=== PATIENT | male | born 1970 | race Caucasian/White ===

== ENCOUNTER 2016-08-22 08:08 | Inpatient (IN) | payer MEDICARE, MEDICAID ==
[2016-08-22] VITALS (10 sets, daily range): BP systolic 109–138; BP diastolic 56–75
[~2016-08-22] VITALS: Ht 177.8 cm; Wt 84.8 kg
[~2016-08-22 08:08] MED LIST: Bacitracin 50000 Units Vial ONE; Bupivacaine w/Epi 0.5% 30ml Vial INJ ONE; CYMBALTA60 MG ORAL; FLUTICASONE PRO16 G1 NASAL; Gelfoam Absorbable 1gm powder pkt TOPIC ONE; Isovue-M 300 15ml INJ ONE; LISINOPRIL30 MG ORAL; LUNESTA3 MG ORAL; MS CONTIN200 MG PO; NEXIUM40 M2 ORAL; NORVASC10 MG ORAL; OXYCODONE HCL15 M1 ORAL; SOMA350 MG PO; SPIRONOLACTONE1 EACH ORAL; SYMBICORT 16010.2 G1 IH; TRAZODONE HCL150 MG ORAL; Thrombin 5000 units TOPIC ONE; Thrombin 5000 units spray kit TOPIC ONE
[2016-08-22] MEDS ORDERED: PLAQUENIL200 MG ORAL (08:13)
--- NOTE | 2016-08-22 10:20 | Pre-Procedure Note/Attestation ---
Pre-Procedure Note/Attestation Complete Prior to Procedure Procedure Narrative: l34 Xlif, PSF with decomp Indications for Procedure Pre-Operative Diagnosis: SP L45S1 fusion L34 discopathy Attestation I attest that I discussed the nature of the procedure; its benefits; risks and complications; and alternatives (and the risks and benefits of such alternatives ), prior to the procedure, with the patient (or the patient's legal product support sales representative). I attest that, if there was a reasonable possibility of needing a blood transfusion, the patient (or the patient's legal product support sales representative) was given the [facility] standardized written summary, pursuant to the Tarun Mojgan Blood Safety Act ([place] Health and Safety Code # 1645, as amended). I attest that I re-evaluated the patient just prior to the surgery and that there has been no change in the patient's H&P, except as documented below: DELLA HATFIELD August 22, 2016 10:20
[2016-08-22] MEDS ORDERED: LR 1000ml 1,000 ML IVLG SCH (11:21)
[2016-08-22] MEDS ORDERED: LR 1000ml 1,000 ML IV SCH (11:30)
--- NOTE | 2016-08-22 11:34 | Anethesia Preoperative Eval ---
Anesthesia Pre-op PMH/ROS General Date of Evaluation: August 22, 2016 Time of Evaluation: 09:15 Anesthesiologist: Kat ASA Score: ASA 3 Mallampati Score Class I : Soft palate, uvula, fauces, pillars visible Class II: Soft palate, uvula, fauces visible Class III: Soft palate, base of uvula visible Class IV: Only hard plate visible Mallampati Classification: Class I Surgeon: Ellie Diagnosis: Radiculopathy Surgical Procedure: Extension of PLIF, lateral interbody fusion Family History: no anesthesia problems Allergies: Coded Allergies: PENICILLIN G (Verified Allergy, Mild, 04/13/09) Medications: see eMAR Past Medical History Cardiovascular: Reports: HTN, Denies: CAD, [place], arrhythmia, other, valve dz Pulmonary: Denies: COPD, JEAN, asthma, other Gastrointestinal/Genitourinary: Reports: GERD, Denies: CRI, ESRD, other Neurologic/Psychiatric: Denies: CVA, TIA, dementia, depression/anxiety, other Endocrine: Reports: other - SLE, Denies: DM, hypothyroidism, steroids HEENT: Denies: [place] (L), [place] (R), cataract (L), cataract (R), glaucoma, other Hematology/Immune: Denies: DVT, anemia, bleeding disorder, other Musculoskeletal/Integumentary: Reports: OA PMH Narrative: SLE, HTN, GERD,OA, chronic pain PSxH Narrative: ALIF and PLIF with ALIF complication of infection, right knee ACL, left TKR, multiple abdominal surgeries secondary to ALIF infections. Anesthesia Pre-op Phys. Exam Physician Exam Last Vital Signs Date Time Temp Pulse Resp B/P Pulse Ox O2 Delivery O2 Flow Rate FiO2 08/22/16 08:43 98.7 70 18 122/61 96 Room Air Constitutional: NAD Neurologic: CN 2-12 intact Cardiovascular: RRR, no M/R/G Respiratory: CTA Gastrointestinal: S/NT/ND Airway Exam Mallampati Score: Class I MO: full ROM: full Teeth: intact Anesthesia Pre-op A/P Labs WNL Studies Pre-op Studies: EKG - NSR Risk Assessment & Plan Assessment: Chronic pain, failed laminectomy syndrome, SLE now for lateral fusion and extension of PLIF Plan: GETA, Sed-Line, Propofol infusion Status Change Before Surgery: No Pre-Antibiotics Drug: Ancef Given Within 1 Hr of Incision: Yes Time Given: 10:00 MARIELY GRULLON M.D. August 22, 2016 11:34
--- NOTE | 2016-08-22 11:36 | Immediate Post-Op Evaluation ---
Immediate Post-Op Evalulation Immediate Post-Op Evalulation Procedure: Extensin of PLIF, lateral interbody fusion Date of Evaluation: August 22, 2016 Time of Evaluation: 15:28 IV Fluids: 2000 Estimated Blood Loss: 125 Urinary Output: 800 Blood Pressure Systolic: 116 Blood Pressure Diastolic: 74 Pulse Rate: 74 Respiratory Rate: 15 O2 Sat by Pulse Oximetry: 100 Temperature (Fahrenheit): 97.4 Pain Score (1-10): 3 Nausea: No Complications No complication Patient Status: awake, patent, extubated, none Hydration Status: adequate Drug: Ancef Given Within 1 Hr of Incision: Yes Time Given: 10:00 MARIELY GRULLON M.D. August 22, 2016 11:36
[2016-08-22] MEDS ORDERED: Bacitracin 50000 Units Vial ONE (12:35)
[2016-08-22] MEDS ORDERED: Bupivacaine w/Epi 0.5% 30ml Vial INJ ONE (12:39)
[2016-08-22] MEDS ORDERED: Vancomycin 1gm inj IVPB ONE (12:39)
[2016-08-22] MEDS ORDERED: Thrombin 5000 units TOPIC ONE (12:39)
[2016-08-22] MEDS ORDERED: Gelfoam Absorbable 1gm powder pkt TOPIC ONE (12:40)
[2016-08-22] MEDS ORDERED: Thrombin 5000 units spray kit TOPIC ONE (12:40)
--- NOTE | 2016-08-22 14:53 | Brief Operative Note ---
Immediate Post Operative Note Operative Note Pre-op Diagnosis: SP L45S1 fusion L34 discopathy Procedure: Xlif, PSF B redo lami L34 Post-op Diagnosis: same as pre-op Findings: consistent w/pre-op dx studies Surgeon: irene Watch Technician: georgia Anesthesiologist: claudy Anesthesia: general Specimen: none Complications: none Condition: stable Estimated Blood Loss: minimal Drains: none Implant(s) used?: Yes - dial lamina /stabilink, spinal elements xlif DELLA HATFIELD August 22, 2016 14:53
[2016-08-22] MEDS ORDERED: HYDROmorphone 1mg/ml Carpuject IVP PRN ×2 (15:00→20:15)
[2016-08-22] MEDS ORDERED: Norco 7.5mg/325mg tab ORAL PRN ×2 (15:00)
[2016-08-22] MEDS ORDERED: Metoclopramide 10mg/2ml Inj IVP PRN (15:00)
[2016-08-22] MEDS ORDERED: Milk of Magnesia 30ml Ud ORAL PRN (15:00)
[2016-08-22] MEDS ORDERED: Norco 5mg/325mg tab ORAL PRN (15:00)
[2016-08-22] MEDS ORDERED: traMADol 50mg tab ORAL PRN (15:00)
[2016-08-22] MEDS ORDERED: HYDROmorphone 1mg/ml Carpuject SUBQ PRN (15:00)
[2016-08-22] MEDS: Meperidine 25mg/0.5ml Inj IV PRN ×2 (15:24→15:56)
[2016-08-22] MEDS: Hydromorphone 0.5mg/0.5ml inj IVP PRN ×3 (15:27→16:07)
[2016-08-22] MEDS: LORazepam Inj 2mg/ml 1ml IV PRN ×2 (15:31→16:01)
--- NOTE | 2016-08-22 16:34 | Diagnostic Imaging Report ---
Indication: PAIN, intraoperative Technique: Digital intraoperative images Comparison: None Findings: Intraoperative images document localizer tool at what is presumably L3-4. Subsequent images demonstrate placement of a disc spacer at L3-4 and interspinous fusion hardware. Pre-existing hardware is also noted Impression: Intraoperative imaging, as described
[2016-08-22] MEDS: D5 1/2NS 1,000 ML IV SCH (18:00)
[2016-08-22] MEDS: Docusate 100mg cap ORAL SCH (18:00)
[2016-08-22] MEDS: ceFAZolin sod 2 GM in D5W 110 ML IV SCH (18:56)
[2016-08-22] MEDS ORDERED: Zolpidem 5mg tab ORAL PRN (19:00)
[2016-08-22] MEDS ORDERED: PCA HYDROmorphone 30mg/30ml Syr IV PRN ×2 (20:15→21:45)
[2016-08-22] MEDS ORDERED: Rate Change PCA 1 Each MISC PRN ×3 (20:15→21:45)
--- NOTE | 2016-08-22 20:15 | Operative Note - Dictated ---
DATE OF OPERATION: 08/22/2016 SURGEON: Robinson Argueta MD., M.D. DOMESTIC MAID: Radu Lazaro PA-C. ANESTHESIOLOGIST: Tarun Stephens M.D. ANESTHESIA TYPE: General endotracheal anesthesia. PREOPERATIVE DIAGNOSES: 1. Status post spinal fusion at L4-L5 and L5-S1 with adjacent level arthrosis and stenosis. 2. Status post X-lift procedure earlier. POSTOPERATIVE DIAGNOSES: 1. Status post spinal fusion at L4-L5 and L5-S1 with adjacent level arthrosis and stenosis. 2. Status post X-lift procedure earlier. OPERATION PERFORMED: 1. Posterior spinal fusion, L3-L4. 2. Redo laminectomy L3 and L4 bilaterally. 3. Nonsegmental instrumentation, L3-L4. 4. Use of operative microscope. 5. Use of fluoroscopy. ESTIMATED BLOOD LOSS: Minimal. COMPLICATIONS: None. FINDINGS: Stable fixation. INDICATIONS: The patient is a pleasant gentleman with status post prior L4 through S1 spinal fusion with advanced discopathy at L3-L4 with spinal stenosis. As he had failed conservative care, surgical recommendations were made and he elected to proceed. RISK NOTE: The patient was explained in detail the risks and benefits of surgery to include, but not be limited to those of bleeding, infection, damage to nerves, vessels, tendons, anesthetic risk, allergic reaction, aspiration, and possibly . The patient understood and wished to proceed. OPERATIVE PROCEDURE IN DETAIL: Under benefits of general anesthesia, the patient was turned prone onto a radiolucent Pradeep frame. All bony prominences were well padded. The back was prepped and draped in usual sterile fashion. Prior incision was identified and was infiltrated with Marcaine with epinephrine. The incision was sharply carried down through the subcutaneous. Subperiosteal dissection was carried out at L3. Dissection through scared anatomy was performed through the superior portion of L4. The extensive amount of scarring was encountered. Operative microscope was brought in place and using a high-speed drill, laminotomy of the inferior portion of L3 and superior portion of L4 as well as a medial facetectomy on the left side was performed. Once the lamina was thinned out, curved curette was used to mobilize the ligamentum flavum and Kerrison 2, 3 and 4 punches were used to remove the lamina on the left side and along the neural foramen. This procedure was repeated in an identical fashion along the right side as well. Once satisfied with the decompression, copious irrigation was performed. Meticulous hemostasis was achieved. A strip of bone graft was then laid onto the laminotomy site bilaterally (bacterin bone as well as local autograft bone). Once satisfied with this, the 10 millimeter dual lamina implants/interspinous fixation device was deployed between the spinous processes of L3 and L4. Under fluoroscopic visualization it was placed in the appropriate position and crimped down to appropriate tightness. The locking screws were then deployed. Copious irrigation was performed. Additional bone graft was placed within the interspinous region. Decision was made to close. Fascia was repaired using #1 Vicryl. Subcutaneous closure using 2-0 Vicryl. Dermabond and sterile dressing was applied. At the time of this dictation, the patient was awaiting extubation. [facility] Argueta DR: KRYSTA JOB#: [id number] CC:
[2016-08-22] MEDS ORDERED: TraZODone 100mg tab ORAL SCH (21:00)
[2016-08-22] MEDS: HYDROmorphone 1mg/ml Carpuject IVP PRN (22:03)
[2016-08-22] MEDS ORDERED: MS Contin 100mg tab ORAL SCH (22:45)
[2016-08-22] MEDS: oxyCODONE 15mg IR tab ORAL PRN (23:20)
[2016-08-22] MEDS: Dronabinol 2.5mg Cap ORAL SCH (23:45)
[2016-08-23 00:02] VITALS: BP 142/72
--- NOTE | 2016-08-23 00:30 | Operative Note - Dictated ---
DATE OF OPERATION: 08/22/2016 SURGEON: Robinson Argueta M.D. UNDERWATER ROBOTICIST: Radu Lazaro PA-C. ANESTHESIOLOGIST: Tarun Stephens M.D. ANESTHESIA: General endotracheal anesthesia. PREOPERATIVE DIAGNOSIS: Status post L4 through S1 fusion with adjacent level discopathy L3-L4 with stenosis. POSTOPERATIVE DIAGNOSIS: Status post L4 through S1 fusion with adjacent level discopathy L3-L4 with stenosis. PROCEDURE: 1. An extreme lateral interbody fusion (with placement of spinal elements cage as well as use of allograft bone). 2. Use of fluoroscopy. 3. Neurodiagnostic monitoring. ESTIMATED BLOOD LOSS: Minimal. COMPLICATIONS: None. FINDINGS: Stable fixation. INDICATIONS: The patient is a 46-year-old gentleman who previously had undergone L4 through S1 fusion and had developed progressive worsening back pain. He failed conservative pain management. He had evidence of spinal stenosis at L3-L4 with findings consistent with discopathy. Pros, cons, risks, and benefits were discussed of extending the fusion. The patient elected to proceed. RISK NOTE: The patient was explained in detail the risks and benefits of surgery to include, but not be limited to, those of bleeding, infection, damage to nerves, muscles, tendons, anesthetic risk, allergic reaction, aspiration, and possibly . The patient understood and wished to proceed. OPERATIVE PROCEDURE IN DETAIL: The patient was taken to the operative suite. After general endotracheal anesthesia was obtained, Salvador catheter was placed. He was turned right side down lateral decubitus on to a radiolucent table. He was firmly strapped with chest holders , care being taken to avoid point pressure. All bony prominences were well padded. The fluoroscope was brought in place and adequate visualization of the L3-L4 level was obtained in both AP and lateral projections. On the lateral projection, the incision site was marked out at L3-L4. The flank was prepped and draped in usual sterile fashion. Skin was infiltrated with Marcaine with epinephrine. The incision was sharply carried down through the subcutaneous down to the lateral fascia. The fascia was incised. The muscle fibers were bluntly spread down from the 3 layers of the lateral abdominal musculature. The area just along the retroperitoneal space was bluntly dissected and the retroperitoneal cavity was dissected free using blunt palpation along the area of the lateral aspect of the disk. Once the blunt manual dissection was achieved a probe was placed onto what was felt to be the L3-L4 disk laterally and AP and lateral projections confirmed this. At this juncture, a blunt wire was passed through the probe and into the disk space. After neurodiagnostic testing confirmed the L3 nerve could not be in the immediate vicinity. Dilation was achieved and EMG testing confirmed that the nerve root was not in the surgical field. The retractors were deployed over the dilators and spread. It was noted that the nerve could be visualized and this was re-retracted dorsally. At this point, the retractors were at the level of the lateral disk space. At this point, the disk was incised and with use of 8 then a 10 mm box curette, the disk was removed from the L3-L4 disk space. Straight pituitary was used to similarly remove the disk material. Endplate strippers were used to remove cartilaginous endplates. At this point, a small cub was used to penetrate the lateral anulus on the contralateral side. This allowed for distraction of the far aspect of the disk space. At this point, an appropriate size 18 mm lordotic implant was chosen and had excellent fit. Please note that the implant was packed with signal fuse bone graft photocomposing machine operator. At this point, copious irrigation was performed. Meticulous hemostasis was performed. Final AP and lateral projections demonstrated implant in excellent position. At this point, the lateral fascia was repaired using #1 Vicryl, subcutaneous closure using 2-0 Vicryl, Dermabond and a sterile dressing. At the end of this procedure, the patient tolerated the procedure well and was turned onto his back awaiting the stage posterior approach. Robinson Argueta M.D. DR: APPLE JOB#: [id number] CC: CURT
[2016-08-23] MEDS ORDERED: MS Contin 30mg tab ORAL ONE (01:00)
[2016-08-23] MEDS: ceFAZolin sod 2 GM in D5W 110 ML IV SCH ×2 (02:10→09:49)
[2016-08-23 04:00] VITALS: BP 142/69
--- NOTE | 2016-08-23 04:30 | Consultation ---
DATE OF CONSULTATION: 08/22/2016 CONSULTING PHYSICIAN: Juan Pablo Nicolas M.D. REFERRING PHYSICIAN: Robinson Argueta M.D. REASON FOR CONSULT: Acute pain consult. HISTORY OF PRESENT ILLNESS: Dr. Robinson Argueta, Thank you kindly for consulting me to evaluate and render an opinion as to how to proceed in the management of the patient's acute postoperative lumbar spine pain after extensive multiple level lumbar spine fusion surgery with instrumentation. The patient is a 46-year-old gentleman, who is narcotic dependent. He sees an outpatient pain management doctor, who is his primary treating physician. The patient uses high dose of long-acting morphine along with high dose short-acting oxycodone while she was nicotine and marijuana dependent. I saw the patient at bedside with the nurse. I performed a detailed history and physical examination. I discussed the case with yourself, Dr. Argueta along with the pharmacist, Anali, Juan Pablo. PAST MEDICAL HISTORY: 1. Acute postoperative lumbar spine, status post lumbar spine fusion surgery with instrumentation by Dr. Robinson Argueta in July 2016. 2. Chronic lumbar spine pain. 3. Opioid dependence. 4. Marijuana dependence. 5. Nicotine dependence. 6. Lupus. 7. High blood pressure. PAST SURGICAL HISTORY: Previous lumbar spine surgery, left knee replacement, right knee surgery, and six abdominal surgeries. MEDICATIONS: At home, extended release morphine 200 mg in the morning and at night, 100 mg in the afternoon, oxycodone instant release 60 mg three to four times per day, Soma, Plaquenil, spironolactone, lisinopril, hydrochlorothiazide, and Norvasc. SOCIAL HISTORY: The patient lives at home with his . He smokes 1/2 packs of tobacco daily. He admits to smoking marijuana every night. FAMILY HISTORY: Diabetes, kidney stones, and coronary artery disease. REVIEW OF SYSTEMS: Per attending physician. PHYSICAL EXAMINATION: VITAL SIGNS: Age 46. Height 5 feet 9. Weight 190 pounds. Body mass index 27. Vital signs, afebrile, pulse 70, respirations 18, blood pressure 135/70, and oxygen saturation 99% on supplemental oxygen. HEENT: Normocephalic and atraumatic. CHEST: Clear to auscultation. HEART: Regular rate and rhythm. ABDOMEN: Positive bowel sounds. BACK: Lumbar spine with significant pain with any movement. EXTREMITIES: Able to move all extremities x4 with 5/5 dorsiflexion, 5/5 plantar flexion, bilateral lower extremities. : Salvador catheter in place. NEUROLOGIC: Detailed neurologic exam per Dr. Argueta. LABORATORY AND DIAGNOSTIC DATA: Shows heart rate 62 on 12-lead EKG showing normal sinus rhythm. MRI of the lumbar spine report in the medical record. Laboratory studies, 08/18/2016, shows sodium 143, potassium 4.2, bicarbonate 29, chloride 87, BUN 12, creatinine 0.7, glucose 104, and calcium 10.0. . Albumin 4.4. Total bilirubin 0.4, alkaline phosphatase 76, ALT 19, and AST 23. White count 7, hematocrit 34, and platelets 275,000. INR 0.8 and PTT . IMPRESSION: 1. Acute postoperative lumbar spine, status post lumbar spine fusion surgery with instrumentation by Dr. Robinson Argueta in July 2016. 2. Chronic lumbar spine pain. 3. Opioid dependence. 4. Marijuana dependence. 5. Nicotine dependence. 6. Lupus. 7. High blood pressure. TREATMENT RECOMMENDATIONS: I spoke with the pharmacist to start the patient on a high-dose TIMBER HEWER unit 0.4 mg demand dose at 12-minute lockout and a 2 mg ____. Additionally, I have ordered a breakthrough dose of intravenous Dilaudid 1 mg q.3 hours p.r.n. for severe breakthrough pain. I placed the patient on oxycodone instant release 60 mg orally every three hours as needed for moderate pain. I have placed the patient on Marinol for his nightly marijuana usage. I recommended a nicotine patch for nicotine withdrawal agitation, which will exacerbate his pain complaint. I believe that the short-term use of the nicotine patch during the hospital will outweigh any long-term deleterious affects bony fusion. The patient most certainly will be resuming heavy tobacco usage once he is discharged from the hospital. The patient states that he has been using a long-acting MS Contin 200 mg twice a day with 100 milligram dose in the afternoon. The patient states that he has been on this dose for at least one year. I therefore had increased his MS Contin slightly to 200 mg every eight hours around the clock, to be held for sedation. I hope this regimen will help improve this patient's pain complaints. Juan Pablo Nicolas M.D. DR: LARRY JOB#: [id number] CC:
[2016-08-23] MEDS: D5 1/2NS 1,000 ML IV SCH ×3 (04:56→23:45)
[2016-08-23 06:52] LABS: MEAN CORPUSCULAR HEMOGLOBIN 28.8 PG (27.0-31.0); MEAN CORPUSCULAR HGB CONC 35.5 G/DL (32.0-36.0); MEAN CORPUSCULAR VOLUME 81 FL (80-99); MEAN PLATELET VOLUME 5.8 FL (6.5-10.1); PLATELET COUNT 227 K/UL (150-450); RED BLOOD COUNT 4.23 M/UL (4.70-6.10); RED CELL DISTRIBUTION WIDTH 11.7 % (11.6-14.8)
[2016-08-23] MEDS: PCA shift volume MISC SCH ×2 (07:00→19:37)
[2016-08-23] MEDS ORDERED: PCA shift volume MISC SCH (07:00)
[2016-08-23] MEDS ORDERED: MS Contin 100mg tab ORAL SCH (07:00)
[2016-08-23] MEDS: oxyCODONE 15mg IR tab ORAL PRN ×3 (07:54→19:02)
[2016-08-23 08:05] VITALS: BP 134/71
[2016-08-23] MEDS: DULoxetine 30mg cap ORAL SCH (08:52)
[2016-08-23] MEDS: Docusate 100mg cap ORAL SCH ×2 (08:52→17:28)
[2016-08-23] MEDS: Spironolactone 25mg tab ORAL SCH (08:53)
[2016-08-23] MEDS: Lisinopril 20mg tab ORAL SCH (08:53)
[2016-08-23] MEDS: MS Contin 100mg tab ORAL SCH ×3 (08:55→21:50)
[2016-08-23] MEDS: HYDROmorphone 1mg/ml Carpuject IVP PRN ×3 (09:02→17:28)
[2016-08-23 09:11] LABS: BAND NEUTROPHILS % (MANUAL) 1 % (0-8); BASOPHILS % (MANUAL) 0 % (0-2); EOSINOPHILS % (MANUAL) 0 % (0-3); LYMPHOCYTES % (MANUAL) 8 % (20-45); NEUTROPHILS % (MANUAL) 88 % (45-75); PLATELET ESTIMATE ADEQUATE; PLATELET MORPHOLOGY NORMAL; TOTAL CELLS COUNTED 100
--- NOTE | 2016-08-23 09:17 | General Progress Note ---
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 CMP Subjective Allergies: Coded Allergies: PENICILLIN G (Verified Allergy, Mild, 04/13/09) Subjective He is s/p lumbar surgery, no c/p or sob, still alot of pain at the site of surgery Objective Last 24 Hour Vital Signs Date Time Temp Pulse Resp B/P Pulse Ox O2 Delivery O2 Flow Rate FiO2 08/23/16 08:53 134/71 08/23/16 08:53 95 134/71 08/23/16 08:05 97.9 95 20 134/71 95 Room Air 08/23/16 08:00 18 08/23/16 04:00 18 08/23/16 04:00 100.8 80 19 142/69 94 Nasal Cannula 08/23/16 00:13 18 08/23/16 00:02 97.3 70 19 142/72 97 Nasal Cannula 08/22/16 20:10 97.3 70 18 135/70 99 Nasal Cannula 08/22/16 19:45 73 17 96 Room Air 08/22/16 19:45 73 19 96 Room Air 08/22/16 19:45 73 18 Room Air 08/22/16 16:30 96.6 70 18 135/65 99 Nasal Cannula 3.0 08/22/16 16:30 98.0 08/22/16 16:25 98.0 70 22 138/70 100 Nasal Cannula 3.0 08/22/16 16:25 98.0 08/22/16 16:10 77 33 130/68 100 Nasal Cannula 3.0 08/22/16 15:55 69 18 135/75 100 Nasal Cannula 3.0 08/22/16 15:40 74 18 129/70 100 Simple Mask 6.0 08/22/16 15:25 81 17 109/61 100 Simple Mask 6.0 08/22/16 15:22 74 15 100 08/22/16 15:20 73 17 121/71 100 Simple Mask 6.0 08/22/16 15:15 97.4 82 18 116/56 100 Simple Mask 6.0 Intake and Output 08/22/16 08/23/16 19:00 07:00 Intake Total 2300 ml 1160 ml Output Total 1075 ml 1600 ml Balance 1225 ml -440 ml Intake Oral 100 ml 150 ml IV Total 2200 ml 1010 ml Output Urine Total 950 ml 1600 ml Estimated Blood Loss 125 ml # Voids 1 Laboratory Tests 08/23/16 06:25: White Blood Count 11.0H, Red Blood Count 4.23L, Hemoglobin 12.2L, Hematocrit 34.3L, Mean Corpuscular Volume 81, Mean Corpuscular Hemoglobin 28.8, Mean Corpuscular Hemoglobin Concent 35.5, Red Cell Distribution Width 11.7, Platelet Count 227, Mean Platelet Volume 5.8L, Neutrophils (%) (Auto) , Lymphocytes (%) ( Auto) , Monocytes (%) (Auto) , Eosinophils (%) (Auto) , Basophils (%) (Auto) , Neutrophils % (Manual) [Pending], Lymphocytes % (Manual) [Pending], Platelet Estimate [Pending], Platelet Morphology [Pending] Height (Feet): 5 Height (Inches): 10.00 Weight (Pounds): 187 General Appearance: WD/WN, no apparent distress, alert EENT: PERRL/EOMI Neck: non-tender, normal alignment Cardiovascular: normal peripheral pulses, normal rate, regular rhythm Respiratory/Chest: chest wall non-tender, lungs clear Abdomen: normal bowel sounds, non tender, soft Extremities: normal range of motion Neurologic: flatwork presser II-XII grossly normal JENNIFER ARITA August 23, 2016 09:17
[2016-08-23] MEDS ORDERED: Propofol 10mg/ml 100ml btl IV ONE (09:30)
[2016-08-23] MEDS ORDERED: Succinylcholine 20mg/ml 10ml vial ONE (09:30)
[2016-08-23] MEDS ORDERED: Propofol 10mg/ml 20ml IV ONE (09:30)
[2016-08-23] MEDS ORDERED: NS Irrig 1000ml ONE (09:30)
[2016-08-23] MEDS ORDERED: fentaNYL 250mcg/5ml ONE (09:30)
[2016-08-23] MEDS ORDERED: Midazolam 2mg/2ml Inj ONE (09:30)
[2016-08-23] MEDS ORDERED: LR 1000ml ONE (09:30)
[2016-08-23] MEDS ORDERED: Sterile Water Irrig 1000ml IRRIG ONE (09:30)
[2016-08-23] MEDS ORDERED: ePHEDrine 50mg/ml Inj ONE (09:30)
[2016-08-23] MEDS ORDERED: Neostigmine 1mg/ml 10ml Inj ONE (09:30)
[2016-08-23] MEDS ORDERED: Nimbex 2mg/ml Inj 10ML IVP ONE (09:30)
[2016-08-23] MEDS ORDERED: Glycopyrrolate 0.2mg/ml 1ml Vial ONE (09:30)
[2016-08-23] MEDS: Flonase Nasal Inhaler 16gm NASAL SCH (09:35)
[2016-08-23 09:37] LABS: ALANINE AMINOTRANSFERASE 13 U/L (3-41); ALBUMIN/GLOBULIN RATIO 1.9 (1.0-2.7); ANION GAP 12 (5-15); ASPARTATE AMINO TRANSFERASE 21 U/L (5-40); CALCIUM 9.9 mg/dL (8.6-10.2); CARBON DIOXIDE 28 mEQ/L (20-30); CHLORIDE 93 mEQ/L (98-107); CREATININE 0.7 mg/dL (0.7-1.2); GLOMERULAR FILTRATION RATE > 60 mL/min (>60); HEMOLYSIS 1; POTASSIUM 4.1 mEQ/L (3.4-4.9); SODIUM 133 mEQ/L (135-145); TOTAL PROTEIN 5.8 g/dL (6.6-8.7)
[2016-08-23 12:00] VITALS: BP 136/63
[2016-08-23 15:59] VITALS: BP 132/74
--- NOTE | 2016-08-23 17:48 | Orthopedic Spine Progress Note ---
Ortho Spine - Progress Note Subjective Symptoms: c/o post-op back pain Objective Vital Signs: Last 24 Hour Vital Signs Date Time Temp Pulse Resp B/P Pulse Ox O2 Delivery O2 Flow Rate FiO2 08/23/16 16:00 18 08/23/16 15:59 96.4 73 18 132/74 93 Room Air 08/23/16 12:00 99.0 83 20 136/63 97 Room Air 08/23/16 12:00 18 08/23/16 09:34 84 16 97 Room Air 08/23/16 09:34 84 16 Room Air 08/23/16 09:34 84 16 98 Room Air 08/23/16 08:53 134/71 08/23/16 08:53 95 134/71 08/23/16 08:05 97.9 95 20 134/71 95 Room Air 08/23/16 08:00 18 08/23/16 04:00 18 08/23/16 04:00 100.8 80 19 142/69 94 Nasal Cannula 08/23/16 00:13 18 08/23/16 00:02 97.3 70 19 142/72 97 Nasal Cannula 08/22/16 20:10 97.3 70 18 135/70 99 Nasal Cannula 08/22/16 19:45 73 17 96 Room Air 08/22/16 19:45 73 19 96 Room Air 08/22/16 19:45 73 18 Room Air I&O: Intake and Output 08/22/16 08/23/16 19:00 07:00 Intake Total 2300 ml 1260 ml Output Total 1075 ml 1600 ml Balance 1225 ml -340 ml Intake Oral 100 ml 150 ml IV Total 2200 ml 1110 ml Output Urine Total 950 ml 1600 ml Estimated Blood Loss 125 ml # Voids 1 Wound: clean, dry, intact Neuro Status: normal Assessment Procedure Performed: Xlif, PSF B redo lami L34 Plan Plan: PT, pain management, d/c antibiotics DELLA HATFIELD August 23, 2016 17:48
[2016-08-23 20:00] VITALS: BP 135/74
[2016-08-23] MEDS ORDERED: Dronabinol 2.5mg Cap ORAL SCH (21:00)
[2016-08-23] MEDS: Dronabinol 2.5mg Cap ORAL SCH (21:43)
[2016-08-23] MEDS: TraZODone 50mg tab ORAL PRN (22:51)
[2016-08-24] VITALS: BP 131/64
--- NOTE | 2016-08-24 00:45 | Progress Note ---
DATE: 08/23/2016 ACUTE PAIN MANAGEMENT PROGRESS NOTE: MEDICATIONS: Medication administration record reviewed. Medications include Tylenol, Mylanta, Norvasc, Symbicort, Soma, Benadryl, Colace, Marinol, Cymbalta, Flonase, hydrochlorothiazide, Dilaudid SUPERVISOR PLASMA, p.r.n. Dilaudid, Plaquenil, Prinivil, milk of magnesia, Demerol, MS Contin, nicotine patch, Zofran, Protonix, spironolactone, trazodone, and oxycodone. LABORATORY STUDIES: From this morning 08/23/2016, his white count was 11, hematocrit 34, and platelets 227,000. Sodium is 133, potassium 4.1, chloride 93, bicarbonate 28, BUN 6, creatinine 0.7, glucose 151, and calcium 9.1. Total bilirubin is 0.4. AST is 21, ALT 13, and alkaline phosphatase 73. Total protein is 5.8. Albumin is 3.8. VITAL SIGNS: Pain level is 7/10 on the visual pain scale. Afebrile, pulse 73, respirations 18, blood pressure 132/74, and pulse oximetry 93% on room air. SUMMARY: I saw the patient at the bedside with the nurse HEIDI Moeller. I discussed the case with the surgeon, Dr. Argueta. The patient has been ambulating with physical therapy. The patient is advancing his diet. The patient is a heavy smoker. I did offer a nicotine patch, which the patient has been accepting. I will trial him off the SUPERVISOR PLASMA tonight. He has been using very high doses of SUPERVISOR PLASMA in combination with his scheduled high dose MS Contin. He also has been alternating breakthrough doses of p.r.n. IV Dilaudid with oxycodone and Soma as well. He received a nighttime dose of marijuana last night. He has shown no signs of oversedation. The patient has asked for a raised toilet seat for home usage. I had a detailed discussion with the patient's outpatient pain doctor. The patient states that he claimed that he sees the patient every two weeks regularly for his narcotic prescription. The patient states that he has new oral pain medication at home. This patient is on a very high doses of scheduled Ms Contin and oxycodone instant release chronically. I told the patient to speak with his for outpatient pain management physician for narcotic refills. We will advance the patient's diet as tolerated. Encourage incentive spirometer usage with his heavy tobacco usage. This patient may be a candidate for intermediate facility transfer. Juan Pablo Nicolas M.D. DR: Lakshmi JOB#: [id number] CC:
[2016-08-24 04:00] VITALS: BP 132/76
[2016-08-24] MEDS: MS Contin 100mg tab ORAL SCH ×3 (05:25→22:09)
[2016-08-24 08:00] VITALS: BP 134/61
--- NOTE | 2016-08-24 08:15 | Progress Note ---
DATE: 08/24/2016 ACUTE PAIN MANAGEMENT PHYSICIAN PROGRESS NOTE: Medication administration record reviewed. MEDICATIONS: Include Tylenol, Mylanta, Norvasc, Symbicort, Soma, Benadryl, Colace, Marinol, Cymbalta, Flonase, hydrochlorothiazide, Dilaudid, Plaquenil, prednisone, milk of magnesia, Demerol, MS Contin, Narcan, Nicoderm patch, Zofran, Protonix, spironolactone, trazodone and oxycodone. LABORATORY AND DIAGNOSTIC DATA: Laboratory studies from yesterday 08/23/2016 shows white count 11, hematocrit 34, and platelets 227,000. OBJECTIVE: VITAL SIGNS: Afebrile, pulse 83, respirations 18, blood pressure 132/76, and oxygen saturation 95% on room air. I saw the patient at bedside. I discussed the case with the nurse RN, Carl. We stopped the INTEGRATED CIRCUIT FABRICATOR overnight. I discussed the case with Dr. Argueta, who ordered transfer to a correction facility, but the patient who does not have any pain medications or access to pain medication at home. The patient is on very high doses of narcotics and I referred him back to his outpatient pain management doctor for refills of his MS Contin 200 mg, Zosyn along with his high dose oxycodone dosing. Here in the hospital, I stopped his INTEGRATED CIRCUIT FABRICATOR at midnight, last night and he has been tolerated using the p.r.n. pain medications. He primarily uses nightly Marinol with a scheduled MS Contin. He has been requesting breakthrough doses of oxycodone and Soma along with IV Dilaudid. I would continue his current analgesic regimen at this time. With normal vital signs, I agree with transfer to a correction facility whenever if bed is available. I continue to order nicotine patch daily for this patient with heavy nicotine addiction. Juan Pablo Nicolas M.D. DR: Alcon JOB#: [id number] CC:
[2016-08-24] MEDS: Docusate 100mg cap ORAL SCH ×2 (08:20→17:47)
[2016-08-24] MEDS: DULoxetine 30mg cap ORAL SCH (08:21)
[2016-08-24] MEDS: oxyCODONE 15mg IR tab ORAL PRN ×3 (08:22→20:16)
[2016-08-24] MEDS: Spironolactone 25mg tab ORAL SCH (08:29)
[2016-08-24] MEDS: Lisinopril 20mg tab ORAL SCH (08:30)
--- NOTE | 2016-08-24 08:44 | Orthopedic Spine Progress Note ---
Ortho Spine - Progress Note Subjective Symptoms: c/o post-op back pain Objective Vital Signs: Last 24 Hour Vital Signs Date Time Temp Pulse Resp B/P Pulse Ox O2 Delivery O2 Flow Rate FiO2 08/24/16 08:30 134/76 08/24/16 08:30 90 134/76 08/24/16 04:00 99.3 83 18 132/76 91 Room Air 08/24/16 00:00 16 08/24/16 00:00 97.7 70 18 131/64 95 Room Air 08/23/16 20:00 16 08/23/16 20:00 98.2 72 18 135/74 92 Room Air 08/23/16 19:24 73 18 95 Room Air 08/23/16 19:23 72 18 96 Room Air 08/23/16 19:20 74 18 Room Air 08/23/16 16:00 18 08/23/16 15:59 96.4 73 18 132/74 93 Room Air 08/23/16 12:00 99.0 83 20 136/63 97 Room Air 08/23/16 12:00 18 08/23/16 09:34 84 16 97 Room Air 08/23/16 09:34 84 16 Room Air 08/23/16 09:34 84 16 98 Room Air 08/23/16 08:53 134/71 08/23/16 08:53 95 134/71 I&O: Intake and Output 08/23/16 08/24/16 19:00 07:00 Intake Total 1430 ml 250 ml Output Total 1800 ml 1300 ml Balance -370 ml -1050 ml Intake Oral 320 ml 250 ml IV Total 1110 ml Output Urine Total 1800 ml 1300 ml Wound: clean, intact Drains: none Assessment Procedure Performed: Xlif, PSF B redo lami L34 Plan Plan: PT, pain management, discharge plan - snf vs DELLA Russell Aug 24, 2016 08:44
[2016-08-24] MEDS: Flonase Nasal Inhaler 16gm NASAL SCH (09:00)
[2016-08-24] MEDS: D5 1/2NS 1,000 ML IV SCH ×2 (09:00→20:26)
[2016-08-24 12:00] VITALS: BP 148/84
[2016-08-24] MEDS: HYDROmorphone 1mg/ml Carpuject IVP PRN (12:14)
[2016-08-24 16:00] VITALS: BP 134/77
--- NOTE | 2016-08-24 17:20 | General Progress Note ---
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 Objective Last 24 Hour Vital Signs Date Time Temp Pulse Resp B/P Pulse Ox O2 Delivery O2 Flow Rate FiO2 08/24/16 16:00 97.3 61 20 134/77 98 Room Air 08/24/16 14:54 98.6 08/24/16 12:44 98.6 08/24/16 12:00 98.2 74 20 148/84 98 Room Air 08/24/16 11:23 98.6 08/24/16 09:35 90 18 95 Room Air 08/24/16 09:35 90 18 95 Room Air 08/24/16 08:30 134/76 08/24/16 08:30 90 134/76 08/24/16 08:00 98.6 74 18 134/61 98 Room Air 08/24/16 04:00 99.3 83 18 132/76 91 Room Air 08/24/16 00:00 16 08/24/16 00:00 97.7 70 18 131/64 95 Room Air 08/23/16 20:00 16 08/23/16 20:00 98.2 72 18 135/74 92 Room Air 08/23/16 19:24 73 18 95 Room Air 08/23/16 19:23 72 18 96 Room Air 08/23/16 19:20 74 18 Room Air Intake and Output 08/23/16 08/24/16 19:00 07:00 Intake Total 1430 ml 250 ml Output Total 1800 ml 1300 ml Balance -370 ml -1050 ml Intake Oral 320 ml 250 ml IV Total 1110 ml Output Urine Total 1800 ml 1300 ml Height (Feet): 5 Height (Inches): 10.00 Weight (Pounds): 187 General Appearance: WD/WN, no apparent distress, alert EENT: PERRL/EOMI, normal ENT inspection Neck: non-tender, normal alignment Cardiovascular: normal rate, regular rhythm Respiratory/Chest: lungs clear, normal breath sounds Abdomen: non tender, soft Extremities: normal range of motion, non-tender 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
[2016-08-24 20:00] VITALS: BP 134/72
[2016-08-24] MEDS: Dronabinol 2.5mg Cap ORAL SCH (22:08)
[2016-08-24] MEDS: TraZODone 50mg tab ORAL PRN (22:40)
[2016-08-25] VITALS: BP 122/64
[2016-08-25] MEDS: D5 1/2NS 1,000 ML IV SCH (00:06)
[2016-08-25 04:00] VITALS: BP 136/64
[2016-08-25] MEDS: MS Contin 100mg tab ORAL SCH ×2 (06:35→14:09)
[2016-08-25 08:00] VITALS: BP 134/69
--- NOTE | 2016-08-25 08:27 | Orthopedic Spine Progress Note ---
Ortho Spine - Progress Note Subjective Symptoms: c/o post-op back pain Objective Vital Signs: Last 24 Hour Vital Signs Date Time Temp Pulse Resp B/P Pulse Ox O2 Delivery O2 Flow Rate FiO2 08/25/16 08:00 99.5 78 20 134/69 98 Room Air 08/25/16 07:34 99.5 08/25/16 04:00 97.8 72 18 136/64 95 Room Air 08/25/16 00:00 97.6 60 18 122/64 99 Room Air 08/24/16 20:00 98.9 67 18 134/72 99 Room Air 08/24/16 19:21 60 20 98 Room Air 21 08/24/16 19:19 61 20 97 Room Air 21 08/24/16 16:00 97.3 61 20 134/77 98 Room Air 08/24/16 12:44 98.6 08/24/16 12:00 98.2 74 20 148/84 98 Room Air 08/24/16 11:23 98.6 08/24/16 09:35 90 18 95 Room Air 08/24/16 09:35 90 18 95 Room Air 08/24/16 08:30 134/76 08/24/16 08:30 90 134/76 I&O: Intake and Output 08/24/16 08/25/16 19:00 07:00 Intake Total 780 ml Output Total 400 ml 650 ml Balance 380 ml -650 ml Intake Oral 780 ml Output Urine Total 400 ml 650 ml # Voids 3 Wound: clean, intact Drains: none Neuro Status: normal Assessment Procedure Performed: Xlif, PSF B redo lami L34 Plan Plan: PT, pain management, discharge plan DELLA HATFIELD Aug 25, 2016 08:27
[2016-08-25] MEDS: Docusate 100mg cap ORAL SCH (09:00)
[2016-08-25] MEDS: Spironolactone 25mg tab ORAL SCH (09:28)
[2016-08-25] MEDS: DULoxetine 30mg cap ORAL SCH (09:30)
[2016-08-25] MEDS: Flonase Nasal Inhaler 16gm NASAL SCH (09:33)
[2016-08-25] MEDS: Lisinopril 20mg tab ORAL SCH (09:34)
[2016-08-25] MEDS: oxyCODONE 15mg IR tab ORAL PRN ×2 (09:39→12:43)
[2016-08-25 12:15] VITALS: BP 135/71
[2016-08-25] MEDS ORDERED: Tubing IV Secondary IV ONE (14:59)
[2016-08-25] MEDS ORDERED: NS Irrig 1000ml ONE (14:59)
[2016-08-25] MEDS ORDERED: D5 1/2NS 1000ml IV ONE ×2 (14:59)
--- NOTE | 2016-08-25 16:30 | Progress Note ---
DATE: 08/25/2016 ACUTE PAIN MANAGEMENT PHYSICIAN PROGRESS NOTE Medication administration record reviewed. Medications include Tylenol, Mylanta, Norvasc, Symbicort, Soma, Benadryl, Colace, Marinol, Cymbalta, Flonase, Dilaudid, Plaquenil, Prinivil, milk of magnesia, Demerol, MS Contin, Narcan, NicoDerm patch, Zofran, Protonix, spironolactone, Desyrel, oxycodone. LABORATORY STUDIES: No interval laboratory studies. Vital signs, T-max and T-current 99.5, pulse 75, respirations 20, oxygen saturation 99% on room air. I discussed the case with the nurse RN, Dena along with the surgeon, Dr. Argueta. The patient continues to clinically progress well and has been accepted to [facility] for advancing physical therapy training. The patient's pain levels have been relatively adequately controlled. He is opioid dependent and is tolerating his MS Contin 20 mg extended release three times a day along with breakthrough doses of Dilaudid and oxycodone. He also has been using his as needed trazodone and his scheduled Marinol. I would not make any changes to his current analgesic plan. The patient needs to follow up with his outpatient pain doctor for narcotic adjustments in consideration for narcotic detox. I have no new recommendations at this time. Juan Pablo Nicolas M.D. DR: Janice JOB#: [id number] CC:
--- NOTE | 2016-08-28 09:07 | Discharge Summary ---
Discharge Summary Hospital Course Date of Admission August 22, 2016 at 08:08 Date of Discharge Aug 25, 2016 at 15:00 Admitting Diagnosis Reason for Hospitalization: elective surgery HPI Rafi Duran is a 46 year old male who was admitted on August 22, 2016 at 08: [address] Murray, Chip- IM dr May - pain specialist Procedures s/p 08/22 dr Argueta 1. An extreme lateral interbody fusion (with placement of spinal elements cage as well as use of allograft bone). 2. Use of fluoroscopy. 3. Neurodiagnostic monitoring. 4. Posterior spinal fusion, L3-L4. 5. Redo laminectomy L3 and L4 bilaterally. 6. Nonsegmental instrumentation, L3-L4. 7. Use of operative microscope. 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 Marijuana dependence. Nicotine dependence. Discharge Medications Continued Medications: Amlodipine Besylate (Norvasc) 10 Mg Tablet 10 MG ORAL DAILY, TAB Budesonide/Formoterol Fumarate (Symbicort 160-4.5 Mcg Inhaler) 10.2 Gm Hfa.aer.ad 1 PUFF IH BID, #1 INH 0 Refills Carisoprodol* (Soma*) 350 Mg Tablet 350 MG PO Q6H, TAB Duloxetine Hcl* (Cymbalta*) 60 Mg Capsule.dr 60 MG ORAL DAILY, CAP Esomeprazole Magnesium (Nexium) 40 Mg Suspdr.pkt 40 MG ORAL DAILY, PKT Eszopiclone (Lunesta) 3 Mg Tablet 3 MG ORAL BEDTIME PRN for Insomnia, TAB 0 Refills Fluticasone Propionate* (Fluticasone Propionate*) 16 Gm [place].susp 1 SPRAY NASAL DAILY, EA Hydroxychloroquine Sulfate* (Plaquenil*) 200 Mg Tablet 200 MG ORAL DAILY, #30 TAB Lisinopril* (Lisinopril*) 30 Mg Tablet 25 MG ORAL DAILY, TAB Morphine Sulfate (Ms Contin) 200 Mg Tablet.er 200 MG PO TID, TAB Oxycodone Hcl* (Oxycodone Hcl*) 15 Mg Tablet 30 MG ORAL Q6H PRN for For Pain, TAB Spironolact/Hydrochlorothiazid (Spironolactone-Hctz 25-25 Tab) 1 Each Tablet 1 TAB ORAL DAILY, TAB Trazodone* (Trazodone*) 150 Mg Tablet 150 MG ORAL BEDTIME, TAB Discharge Condition Upon Discharge: stable Discharge Disposition Patient was discharged to SNF/Subacute Facility(03) Discharge Diagnoses: Discharge Instructions Discharge Instructions Special Instructions I have been assigned to complete a D/C Summary on this account. I was not involved in the patient management Christina Watkins NP ([place]) Aug 28, 2016 09:07
== END 2016-08-25 15:00 | DRG 460 ==
LOC: SDSOVERFLO 08:08 → 3E 16:00
PROC: 01NB0ZZ Release Lumbar Nerve, Open Approach (ICD-10-PCS; principal; 2016-08-22 08:30)
PROC: 4A11X4G Monitoring of Peripheral Nervous Electrical Activity, Intraoperative, External Approach (ICD-10-PCS; principal; 2016-08-22 08:30)
PROC: 0SG00A1 (ICD-10-PCS; principal; 2016-08-22 08:30)
DX: M48.06 Spinal stenosis, lumbar region (principal); F11.20 Opioid dependence, uncomplicated; M32.9 Systemic lupus erythematosus, unspecified; M54.10 Radiculopathy, site unspecified; Z98.890 Other specified postprocedural states; F17.200 Nicotine dependence, unspecified, uncomplicated; F12.20 Cannabis dependence, uncomplicated; G89.18 Other acute postprocedural pain; I10 Essential (primary) hypertension
CPT/HCPCS: 36415; 72020; 76001; 80053; 85007; 85025; 86850; 86900; 86901; 87081; 94003; 94150; 94640; 94664; J2180; J2250; J2405; J2710